=== PATIENT | male | born 1965 | race Caucasian/White ===

== ENCOUNTER 2016-08-17 21:36 | Emergency (ER) | payer MEDICAID ==
[2016-08-17] MEDS ORDERED: AMITRIPTYLINE HCL 100 MG TAB PO ONE (22:10)
--- NOTE | 2016-08-17 22:11 | EDPHY ---
H & P Stated Complaint: Rx refill HPI/ROS: Chief complaint: Medication refill History of present illness: 51-year-old male presents to the emergency department requesting a 1 time dose of Elavil 150 mg. He states he takes it at night for treatment of his depression and insomnia. He is at a [facility] house. He could not find his dose tonight. He presents requesting a single dose. He states he is going to follow up with his primary care doctor tomorrow for further medication needs. He has no other complaints at this time. 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 Eyes: Pupils equal and round no injection. Respiratory: Chest is non tender, lungs are clear to auscultation. Cardiac: regular rate and rhythm Gastrointestinal: Abdomen is soft and non tender, no masses, bowel sounds normal. Musculoskeletal: Neck is supple and non tender. Extremities have full range of motion and are non tender. Skin: No rashes or lesions. Neurological: Alert. Strength and sensation intact and symmetrical. Constitutional: Initial Vital Signs Temperature (C) 37 C 08/17/16 21:39 Heart Rate 111 H 08/17/16 21:39 Respiratory Rate 16 08/17/16 21:39 Blood Pressure 128/103 H 08/17/16 21:39 O2 Sat (%) 95 08/17/16 21:39 O2 Delivery Mode Room Air Allergies/Adverse Reactions: No Known Allergies Allergy (Unverified 08/17/16 21:38) Home Medications: Medication Instructions Recorded Celexa 08/17/16 Elavil 08/17/16 Medical Decision Making ED Course/Re-evaluation: Patient seen under the supervision of my secondary supervising physician Dr. Desean Wilkerson. Patient presents to the emergency department requesting a 1 time dose of his Elavil, 150 mg that he takes nightly. This is given. He is going to follow up with his primary care doctor tomorrow for continued care. He has no other complaints at this time. Departure - Departure Disposition: Home, Routine, Self-Care Clinical Impression: Medication refill Condition: Good Instructions: Medicine Refill (ED) Additional Instructions: Follow-up with your primary care doctors for further medication refill needs Return to the emergency department if you have other problems Referrals: NONE *PRIMARY CARE P,. [Primary Care Provider] - As per Instructions [facility] [Outside] - As per Instructions
[2016-08-17 22:32] VITALS: BP 122/78; PULSE 70; RESP 14; TEMP 98.4; O2SAT 94
== END 2016-08-17 22:31 | disposition home or self-care (01) ==
DX: Z76.0 Encounter for issue of repeat prescription (principal); F17.200 Nicotine dependence, unspecified, uncomplicated

== ENCOUNTER 2016-08-30 07:00 | Emergency (ER) | payer MEDICAID ==
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
[2016-08-30 08:07] VITALS: BP 128/85; PULSE 98; RESP 18; TEMP 98.2; O2SAT 95
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
== END 2016-08-30 08:08 | disposition home or self-care (01) ==
DX: S53.32XA Traumatic rupture of left ulnar collateral ligament, initial encounter (principal); F17.200 Nicotine dependence, unspecified, uncomplicated; W18.39XA Other fall on same level, initial encounter
CPT/HCPCS: L3807

== ENCOUNTER 2016-09-27 18:57 | Emergency (ER) | payer MEDICAID ==
[2016-09-27 19:07] VITALS: O2SAT 93
[2016-09-27] MEDS ORDERED: diphenhydrAMINE 25 MG CAP PO ONE (19:58)
[2016-09-27] MEDS ORDERED: predniSONE 20 MG TAB PO ONE (19:59)
--- NOTE | 2016-09-27 20:01 | EDPHY ---
H & P Time Seen by Provider: 09/27/16 19:11 HPI/ROS: CHIEF COMPLAINT: rash HISTORY OF PRESENT ILLNESS: 51-year-old male presents emergency department with a rash to his torso that is itchy for the past 2 weeks. Patient denies fevers or chills, no cough or cold symptoms, no nausea or vomiting. No diarrhea. Patient is staying [place] a [facility] house. He reports he is using new laundry detergent. Patient has no tongue swelling, difficulty swallowing, difficulty breathing. He denies known allergies. Smoking Status: Heavy smoker Physical Exam: Physical Exam Gen: Alert and Oriented, NAD HEENT: PERRL, moist mucous membranes NECK: no meningismus CV: regular rate and regular rhythm PULM: CTAB, no wheezes ABDOMEN: soft, non tender to palpation, BS present BACK: No CVA tenderness NEURO: Neurologically grossly intact EXTREMITIES: normal appearing SKIN: Rash to torso, red raised papules, blanchable PSYCH: answers questions appropriately. Constitutional: Initial Vital Signs Temperature (C) 36.8 C 09/27/16 19:04 Heart Rate 98 09/27/16 19:04 Respiratory Rate 16 09/27/16 19:04 Blood Pressure 130/71 H 09/27/16 19:04 O2 Sat (%) 93 09/27/16 19:04 O2 Delivery Mode Room Air Allergies/Adverse Reactions: No Known Allergies Allergy (Unverified 08/17/16 21:38) Home Medications: Medication Instructions Recorded Celexa 08/17/16 Elavil 08/17/16 predniSONE 40 mg PO DAILY #6 tab 09/27/16 MDM/Departure - MDM Medications Given: Discontinued Medications Diphenhydramine HCl (Benadryl) 50 mg PO EDNOW ONE Stop: 09/27/16 19:59 Last Admin: 09/27/16 20:06 Dose: 50 mg Prednisone (Prednisone) 40 mg PO EDNOW ONE Stop: 09/27/16 20:00 Last Admin: 09/27/16 20:07 Dose: 40 mg - Depart Disposition: Home, Routine, Self-Care Clinical Impression: Contact dermatitis Qualifiers: Contact dermatitis type: allergic Contact dermatitis trigger: unspecified trigger Qualified Code(s): L23.9 - Allergic contact dermatitis, unspecified cause Condition: Good Instructions: Contact Dermatitis (ED), Acute Rash (ED) Additional Instructions: Take 25-50 mg of Benadryl every 8 hours for 3 days, take 40 mg of prednisone daily for 3 days. Wash your clothes and sheets in a mild detergent. Return to the emergency department for any difficulty breathing, wheezing, tongue swelling. Follow up with the primary care provider listed for symptoms that are not improving in 3-5 days. Prescriptions: predniSONE 40 mg PO DAILY #6 tab Referrals: [facility] [Outside] - As per Instructions
[2016-09-27 21:07] VITALS: BP 144/80; PULSE 91; RESP 18; TEMP 97.7
== END 2016-09-27 21:31 | disposition home or self-care (01) ==
DX: L23.9 Allergic contact dermatitis, unspecified cause (principal)

== ENCOUNTER 2018-10-12 11:40 | Emergency (ER) | payer MEDICAID | END 2018-10-12 12:51 | disposition home or self-care (01) ==

== ENCOUNTER 2018-10-29 19:42 | Emergency (ER) | payer MEDICAID ==
[2018-10-29 19:48] VITALS: BP 125/82
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
[2018-10-29] MEDS ORDERED: IBUPROFEN 600 MG TAB PO ONE (20:33)
[2018-10-29] MEDS ORDERED: MAG HYDROX/AL HYDROX/SIMETH 30 ML UDCUP ONE (20:39)
[2018-10-29] MEDS ORDERED: FAMOTIDINE 20 MG TAB ONE (20:39)
[2018-10-29] MEDS ORDERED: HYOSCYAMINE SULFATE 0.125 MG TAB ONE (20:39)
[2018-10-29] MEDS ORDERED: LIDOCAINE 2% VISCOUS 15 ML UDCUP ONE (20:40)
== END 2018-10-29 20:40 | disposition home or self-care (01) ==
LOC: EDUNIT#
DX: S20.211A Contusion of right front wall of thorax, initial encounter (principal); V19.9XXA Pedal cyclist (driver) (passenger) injured in unspecified traffic accident, initial encounter; Y93.55 Activity, bike riding